=== PATIENT | female | born 1950 | race Caucasian/White ===

== ENCOUNTER 2017-07-23 14:10 | Emergency (ER) | payer OTHER ==
--- NOTE | 2017-07-23 14:30 | CPEKG ---
Heart Rate: 55 RR Interval: 1091 P-R Interval: 140 QRSD Interval: 74 QT Interval: 428 QTC Interval: 410 P [place]: 61 QRS [place]: 52 T Wave [place]: 72 EKG Severity - NORMAL ECG - EKG Impression: SINUS RHYTHM Electronically Signed By: Berlin Dueñas 23-Jul-2017 14:35:04
--- NOTE | 2017-07-23 14:34 | EDPHY ---
H & P Time Seen by Provider: 07/23/17 14:24 HPI/ROS: CHIEF COMPLAINT: Back pain HISTORY OF PRESENT ILLNESS: Patient is a 67-year-old female with history of myocardial infarction and 4 stents this summer. She developed pain between her shoulder blades about 5 days ago noticed and some shortness of breath beginning yesterday with exertion. She thought initially that she might be getting the flu but has not had any fever sore throat, cough runny nose etc. No recent procedures or travel. No leg pain or swelling. No trauma. REVIEW OF SYSTEMS: Constitutional: denies: chills, fever, recent illness, recent injury EENTM: denies: blurred vision, double vision, nose congestion Respiratory: See HPI denies: cough Cardiac: denies: chest pain, irregular heart rate, lightheadedness, palpitations Gastrointestinal/Abdominal: denies: abdominal pain, diarrhea, nausea, vomiting, blood streaked stools Genitourinary: denies: dysuria, frequency, hematuria, pain Musculoskeletal: See HPI Skin: denies: lesions, rash, jaundice, bruising Neurological: denies: headache, numbness, paresthesia, tingling, dizziness, weakness Hematologic/Lymphatic: denies: blood clots, easy bleeding, easy bruising Immunologic/allergic: denies: HIV/AIDS, transplant EXAM: GENERAL: Well-appearing, well-nourished and in no acute distress. HEAD: Atraumatic, normocephalic. EYES: Pupils equal round and reactive to light, extraocular movements intact, sclera anicteric, conjunctiva are normal. ENT: TMs normal, nares patent, oropharynx clear without exudates. Moist mucous membranes. NECK: Normal range of motion, supple without lymphadenopathy or JVD. LUNGS: Breath sounds clear to auscultation bilaterally and equal. No wheezes rales or rhonchi. HEART: Regular rate and rhythm without murmurs, rubs or gallops. ABDOMEN: Soft, nontender, normoactive bowel sounds. No guarding, no rebound. No masses appreciated. BACK: No CVA tenderness, no spinal tenderness, step-offs or deformities EXTREMITIES: Normal range of motion, no pitting or edema. No clubbing or cyanosis. NEUROLOGICAL: Cranial nerves II through XII grossly intact. Normal speech, normal gait. 5/5 strength, normal movement in all extremities, normal sensation PSYCH: Normal mood, normal affect. SKIN: Warm, dry, normal turgor, no visible rashes or lesions. Source: Patient Exam Limitations: No limitations - Medical/Surgical History Hx Asthma: No Hx Chronic Respiratory Disease: No Hx Diabetes: No Hx Cardiac Disease: No Hx Renal Disease: No Hx Cirrhosis: No - Family History Significant Family History: No pertinent family hx - Social History Smoking Status: Never smoked Alcohol Use: Sober Drug Use: None Constitutional: Initial Vital Signs Temperature (C) 36.8 C 07/23/17 14:10 Heart Rate 50 L 07/23/17 14:10 Respiratory Rate 16 07/23/17 14:10 Blood Pressure 144/69 H 07/23/17 14:10 O2 Sat (%) 98 07/23/17 14:10 O2 Delivery Mode Room Air Allergies/Adverse Reactions: No Known Allergies Allergy (Verified 07/23/17 14:35) Home Medications: Medication Instructions Recorded Aspirin 07/23/17 Atorvastatin Calcium 07/23/17 Clopidogrel 07/23/17 Lexapro 07/23/17 Lisinopril 07/23/17 Pramipexole Dihydrochloride 07/23/17 Synthroid 07/23/17 Medical Decision Making - Diagnostics EKG Interpretation: An EKG obtained and was read and documented in trace view. Please see trace view for full reading and report. Sinus bradycardia, no acute ischemic changes , Imaging Results: Imaging Impressions Chest X-Ray 07/23/17 15:29 Impression: 1. Mild bronchitis. 2. No definite focal pneumonia. Imaging: Discussed imaging studies w/ director call center sales Radiologist ED Course/Re-evaluation: Patient is slightly bradycardic. She states that this is her baseline. She denies lightheadedness or dizziness. 4:15 p.m. the patient is reassured. We discussed the test results. She declines further workup or observation. We discussed repeat testing which she declines. She will follow up with her primary over the next day or 2. We discussed indications for returning here. Differential Diagnosis: Partial list of the Differential diagnosis considered include but were not limited to; musculoskeletal, PE, acute coronary disease and although unlikely based on the history and physical exam, I also considered aneurysm, pneumonia, pneumothorax, dissection. I discussed these differential diagnoses and the plan with the patient as well as the usual and expected course. The patient understands that the diagnosis is provisional and that in medicine we are not always correct and that further workup is often warranted. Usual and customary warnings were given. All of the patient's questions were answered. The patient was instructed to return to the emergency department should the symptoms at all worsen or return, otherwise to followup with the physician as we discussed. - Data Points Laboratory Results: Laboratory Results 07/23/17 14:35 07/23/17 14:35 07/23/17 07/23/17 07/23/17 14:35 14:35 14:35 WBC 8.68 10^3/uL 10^3/uL (3.80-9.50) RBC 4.95 10^6/uL 10^6/uL (4.18-5.33) Hgb 15.8 g/dL g/dL (12.6-16.3) Hct 45.8 % % (38.0-47.0) MCV 92.5 fL fL (81.5-99.8) MCH 31.9 pg pg (27.9-34.1) MCHC 34.5 g/dL g/dL (32.4-36.7) RDW 12.3 % % (11.5-15.2) Plt Count 256 10^3/uL 10^3/uL (150-400) MPV 10.9 fL fL (8.7-11.7) Neut % (Auto) 64.4 % % (39.3-74.2) Lymph % (Auto) 23.4 % % (15.0-45.0) Mower % (Auto) 10.4 % % (4.5-13.0) Eos % (Auto) 0.0 % L % (0.6-7.6) Baso % (Auto) 1.5 % % (0.3-1.7) Nucleat RBC Rel Count 0.0 % % (0.0-0.2) Absolute Neuts (auto) 5.59 10^3/uL 10^3/uL (1.70-6.50) Absolute Lymphs (auto) 2.03 10^3/uL 10^3/uL (1.00-3.00) Absolute Monos (auto) 0.90 10^3/uL H 10^3/uL (0.30-0.80) Absolute Eos (auto) 0.00 10^3/uL L 10^3/uL (0.03-0.40) Absolute Basos (auto) 0.13 10^3/uL H 10^3/uL (0.02-0.10) Absolute Nucleated RBC 0.00 10^3/uL 10^3/uL (0-0.01) Immature Gran % 0.3 % % (0.0-1.1) Immature Gran # 0.03 10^3/uL 10^3/uL (0.00-0.10) PT 13.2 SEC SEC (12.0-15.0) INR 0.98 (0.83-1.16) APTT 25.8 SEC SEC (23.0-38.0) D-Dimer 0.32 ug/mLFEU ug/mLFEU (0.00-0.50) Sodium 139 mEq/L mEq/L (135-145) Potassium 4.1 mEq/L mEq/L (3.5-5.2) Chloride 106 mEq/L mEq/L (97-110) Carbon Dioxide 22 mEq/l mEq/l (22-31) Anion Gap 11 mEq/L mEq/L (8-16) BUN 20 mg/dL mg/dL (7-23) Creatinine 0.7 mg/dL mg/dL (0.6-1.0) Estimated GFR > 60 Glucose 84 mg/dL mg/dL (70-100) Calcium 10.4 mg/dL mg/dL (8.5-10.4) Total Bilirubin 0.5 mg/dL mg/dL (0.1-1.4) Conjugated Bilirubin 0.3 mg/dL mg/dL (0.0-0.5) Unconjugated Bilirubin 0.2 mg/dL mg/dL (0.0-1.1) AST 30 IU/L IU/L (14-46) ALT 47 IU/L IU/L (9-52) Alkaline Phosphatase 115 IU/L IU/L (38-126) Troponin I < 0.012 ng/mL ng/mL (0.000-0.034) Total Protein 6.8 g/dL g/dL (6.3-8.2) Albumin 4.0 g/dL g/dL (3.5-5.0) Lipase 56 IU/L IU/L (23-300) Medications Given: Discontinued Medications Aspirin (Aspirin) 324 mg PO EDNOW ONE Stop: 07/23/17 15:30 Last Admin: 07/23/17 15:50 Dose: Not Given Departure - Departure Disposition: Home, Routine, Self-Care Clinical Impression: Back pain Qualifiers: Back pain location: thoracic back pain Chronicity: unspecified Back pain laterality: midline Qualified Code(s): M54.6 - Pain in thoracic spine Condition: Fair Instructions: Back Pain (ED) Referrals: NONE *PRIMARY CARE P,. [Primary Care Provider] - 1-2 days without fail (Dr. Heredia)
[2017-07-23 14:42] VITALS: RESP 16
[2017-07-23] MEDS ORDERED: ASPIRIN 81 MG CHEWABLE TAB PO ONE (15:29)
[2017-07-23 15:36] LABS: PLATELET COUNT 256 10^3/uL (150-400)
[2017-07-23 15:50] LABS: INR 0.98 (0.83-1.16); PROTIME(PATIENT) 13.2 SEC (12.0-15.0)
[2017-07-23 16:40] VITALS: BP 105/53; PULSE 48; TEMP 98.1; O2SAT 97
== END 2017-07-23 16:38 | disposition home or self-care (01) ==
DX: M54.6 Pain in thoracic spine (principal); I25.2 Old myocardial infarction; Z79.82 Long term (current) use of aspirin; Z95.5 Presence of coronary angioplasty implant and graft

== ENCOUNTER 2018-01-22 10:53 | Emergency (ER) | payer OTHER ==
--- NOTE | 2018-01-22 11:58 | EDPHY ---
H & P Stated Complaint: cp hx NSTEMI LAST FEBRUARY /CP INTERMITTENT X 10 DAYS Time Seen by Provider: 01/22/18 11:27 HPI/ROS: CHIEF COMPLAINT: Chest pain HISTORY OF PRESENT ILLNESS: This is a 68-year-old female status post NSTEMI in February of 2017. At that time she underwent cardiac catheterization and had 4 stents placed. Prior to this [place] she had left arm pain. In retrospect she recalls having chest pain regularly but she has not had any chest pain since this stenting. However, she is now experiencing substernal chest pain that began 2 days ago and has been constant. She is unaware of any inciting factors but wonders if stress could be contributing. She recently visited her mother who is apparently dying of congestive heart failure. She also notices that her exercise tolerance has diminished. Exercise does not cause her chest pain to worsen however, she used to be able to walk 2 miles without difficulty but now notices that if she is walking and talking she becomes short of breath after about 0.25 mi. REVIEW OF SYSTEMS: A ten system review of systems was performed and is negative with the exception of the items mentioned in the HPI. Past medical history: !. CAD 2. HTN 3. Hypothyroid 4. 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 She does not use tobacco or alcohol products. General Appearance: Alert. Vital signs reviewed. Eyes: Pupils equal and round, no conjunctival injection, no discharge. Anicteric. ENT, Mouth: Mucous membranes are moist, no oropharyngeal erythema or edema. Neck: No lymphadenopathy, supple. No JVD. Respiratory: Lungs are clear to auscultation; no wheezes, rales, or rhonchi. Cardiovascular: Regular rate and rhythm; no murmur, rub, or gallop. Gastrointestinal: Abdomen is soft and nontender, no masses or organomegaly, bowel sounds normal. Skin: Warm and dry, no rashes on exposed skin, normal color. Back: Nontender to palpation over the thoracolumbar spine. No CVAT. Extremities: No lower extremity edema, no calf tenderness or swelling. Neurological: Alert and oriented. Moving all four extremities easily and equally. Psychiatric: Normal affect. - Personal History Current Tetanus Diphtheria and Acellular Pertussis (TDAP): Yes - Medical/Surgical History Hx Asthma: No Hx Chronic Respiratory Disease: No Hx Diabetes: No Hx Cardiac Disease: Yes Hx Renal Disease: No Hx Cirrhosis: No Hx Alcoholism: No Hx HIV/AIDS: No Hx Splenectomy or Spleen Trauma: No Other PMH: [place] in 2017 4 stents, hypothyroid, HTN, anxiety, restless leg syndrome - Social History Smoking Status: Never smoked Constitutional: Initial Vital Signs Temperature (C) 36.6 C 01/22/18 10:57 Heart Rate 51 L 01/22/18 10:57 Respiratory Rate 18 01/22/18 10:57 Blood Pressure 117/52 L 01/22/18 10:57 O2 Sat (%) 96 01/22/18 10:57 O2 Delivery Mode Room Air Allergies/Adverse Reactions: No Known Allergies Allergy (Verified 01/22/18 10:56) Home Medications: Medication Instructions Recorded Aspirin 07/23/17 Atorvastatin Calcium 07/23/17 Clopidogrel 07/23/17 Lexapro 07/23/17 Lisinopril 07/23/17 Pramipexole Dihydrochloride 07/23/17 Synthroid 07/23/17 Medical Decision Making ED Course/Re-evaluation: Patient was serially evaluated in the emergency department. At 2:10 p.m., on re -evaluation, she is sitting on her bed working on her computer. She states that she feels relaxed and chest pain-free. Initial evaluation including point of care troponin, chest x-ray, EKG, CBC, chemistries all negative/within normal limits. I reviewed these findings with her. She has a HEART score of 6, placing her at moderate risk. She and I reviewed the HEART score together. I recommended hospitalization, which she would like to avoid. A second POC troponin, performed three hours after the first troponin, is also negative. I spoke with Dr. Jewel Guillaume. on the phone, on-call for the patient's clinic mgr, Dr. Jordan. It is agreed that hospitalization he is reasonable in this setting. I spoke with the patient again about hospitalization and she chooses not remain in the hospital. She is capable of making her own medical decisions, understands the risks and the benefits of hospitalization. She understands that the risks include myocardial infarction and . She will call Dr. Jordan'office this afternoon and arrange a nuclear stress test, as recommended by Dr. Guillaume. Differential Diagnosis: Chest pain including but not limited to myocardial ischemia, pulmonary embolus, chest wall pain, pleural inflammation and pulmonary infectious causes. - Data Points Laboratory Results: Laboratory Results 01/22/18 11:20 01/22/18 11:20 Point of Care Test Results: Chemistry 01/22/18 01/22/18 14:30 11:21 POC Troponin I 0.00 ng/mL ng/mL 0.01 ng/mL ng/mL (0.00-0.08) (0.00-0.08) Departure - Departure Disposition: Home, Routine, Self-Care Clinical Impression: Chest pain Qualifiers: Chest pain type: precordial pain Qualified Code(s): R07.2 - Precordial pain Condition: Good Instructions: Chest Pain (ED) Additional Instructions: Call Dr. Jordan'office today, let the office staff know that you have been in the emergency department and that it has been recommended by the clinic mgr on duty that you have a nuclear stress past performed. They can set this up for you. As we discussed, if your chest pain returns or if you have any concerning symptoms, you should call 911 and return to the emergency department. Concerning symptoms would include worsening shortness of breath, persistent nausea, sweating, feeling as if you might faint, left arm pain, and persistent chest pain. Referrals: ÁNGEL NGUYỄN [Other] - As per Instructions
[2018-01-22 12:03] LABS: PLATELET COUNT 224 10^3/uL (150-400)
[2018-01-22 12:22] VITALS: BP 116/63
--- NOTE | 2018-01-22 15:05 | CPEKG ---
Test Reason : OPEN Blood Pressure : / mmHG Vent. Rate : 050 BPM Atrial Rate : 049 BPM P-R Int : 113 ms QRS Dur : 080 ms QT Int : 439 ms P-R-T Axes : 062 048 060 degrees QTc Int : 401 ms Sinus rhythm Confirmed by Mónica Hopkins ([id number]) on 01/22/2018 3:04:32 PM Referred By: Confirmed By:Mónica Hopkins
== END 2018-01-22 15:24 | disposition home or self-care (01) ==
DX: R07.2 Precordial pain (principal); I25.10 Atherosclerotic heart disease of native coronary artery without angina pectoris; I25.2 Old myocardial infarction; I10 Essential (primary) hypertension; E03.9 Hypothyroidism, unspecified; G25.81 Restless legs syndrome; Z82.49 Family history of ischemic heart disease and other diseases of the circulatory system; Z95.5 Presence of coronary angioplasty implant and graft
CPT/HCPCS: 84484-PO